=== PATIENT | male | born 1945 | race Caucasian/White ===

== ENCOUNTER → 2016-09-29 | Outpatient (CLI) | payer MEDICARE, BC ==
--- NOTE | 2016-09-29 14:45 | CARDIOVASCULAR REPORT ---
"Cerebrovascular Exam Indications: 368.2 Diplopia. 780.4 Dizziness and giddiness. IMPRESSIONS 1. The bilateral vertebral arteries are patent with normal antegrade flow. 2. Study suggests less than 20% stenosis involving the right internal carotid artery and the left internal carotid artery. No change from the study of 20-Aug-2007. History: Risk factors: Hypertension. Carotid duplex study. Complete study and Doppler flow study including spectral analysis, color and xie scale imaging. Height: Height: 175.3cm. Height: 69in. Weight: Weight: 90.7kg. Weight: 199.6lb. Body mass index: BMI: 29.5kg/m^2. Body surface area: BSA: 2.12m^2. Tables: Arterial flow: + +--------+--------+ |Location |V sys |V ed | + +--------+--------+ |Right CCA - proximal|74.6cm/s|13.4cm/s| + +--------+--------+ |Right CCA - distal |62.9cm/s|14.1cm/s| + +--------+--------+ |Right ECA |115cm/s |--------| + +--------+--------+ |Right ICA - proximal|64.6cm/s|12.3cm/s| + +--------+--------+ |Right ICA - mid |47cm/s |17cm/s | + +--------+--------+ |Right ICA - distal |51.7cm/s|15.3cm/s| + +--------+--------+ |Right vertebral |47.1cm/s|--------| + +--------+--------+ |Left CCA - proximal |94.3cm/s|19.6cm/s| + +--------+--------+ |Left CCA - distal |92.7cm/s|15.7cm/s| + +--------+--------+ |Left ECA |130cm/s |--------| + +--------+--------+ |Left ICA - proximal |77cm/s |20.4cm/s| + +--------+--------+ |Left ICA - mid |62.8cm/s|19.4cm/s| + +--------+--------+ |Left ICA - distal |73.9cm/s|21.2cm/s| + +--------+--------+ |Left vertebral |40.9cm/s|--------| + +--------+--------+ (Report amended ) Electronically signed by: Brandon Mcleod [id number]"
--- NOTE | 2016-09-30 09:49 | RADIOLOGY REPORT PS360 ---
MRI-BRAIN W/O HISTORY: Double vision, diplopia, lightheaded DIPLOPIA COMPARISON: None TECHNIQUE: Standard multiplanar multiecho sequences are performed without contrast. FINDINGS: No midline shift, mass effect, intracranial hemorrhage, hydrocephalus, or extra-axial fluid collection is evident. No evidence of acute infarction. There are a few punctate nonspecific T2 white matter hyperintensities noted with mild atrophy noted Cerebellopontine angles, cerebellum, and brainstem are unremarkable. Pituitary has an unremarkable appearance. No mastoid effusion or sinus air-fluid level is evident. IMPRESSION: 1. No acute intracranial pathology. 2. Involutional changes of age with mild atrophy and nonspecific T2 white matter hyperintensities
--- NOTE | 2016-09-30 09:56 | RADIOLOGY REPORT PS360 ---
EXAM: CT LUNG LOW DOSE WO CONTRAST COMPARISON: None HISTORY: Greater than 30 pack-year smoking history, currently smoking, asymptomatic TECHNIQUE: The exam was performed on a GE Light Speed [address] scanner using 2.94 mGy CTDI. A low dose helical CT CHEST was performed on a multi-detector scanner The LDCT was performed in a facility that meets the criteria for the screening program. Data regarding this exam was submitted to ACR which is an approved registry. The order for this exam indicates that it came as a result of a lung cancer screening counseling shard decision-making visit that included all the elements required of such a visit including smoking cessation. The radiologist interpreting this exam meets the [facility] criteria for the LDCT lung cancer screening program. The exam is reported using the Lung-RADS classification scale and reported to the ACR registry. NOTE: This study was performed for the specific purposes of lung cancer screening and is not an alternative to diagnostic chest CT. RADIATION DOSE: CTDI vol(CT dose Index-volume) = 2.94mG DLP (Dose Length Product) = 122.23 mGcm FINDINGS: There are 2 3-mm nodules in the right middle lobe a semisolid 4 mm nodules present in the left upper lobe. Semisolid 10 mm opacity in the left lung base probably due to an area of fibrosis. LUNG PARENCHYMA Emphysema: No detectable emphysematous change Airways disease: Hyperinflation with mild bronchial thickening Fibrosis: Minimal fibrotic change right apex and probable fibrotic change left lower lobe OTHER ANATOMIC REGIONS Lymph Nodes: No enlarged lymph nodes evident. Scattered small nodes are present in the mediastinum and zaire Pleura: Unremarkable Cardiac: Coronary artery calcifications suggesting coronary artery disease OTHER FINDINGS: No other pertinent findings evident IMPRESSION: 1. Lung RADS Category: 3 probably benign. Recommend 6 month follow-up regarding probable fibrotic changes left lower lobe 2. Other findings: Coronary artery calcifications consistent with coronary artery disease Obstructive chronic bronchitis RECOMMENDATIONS: 6 monthd LDCT follow-up
== END ==
LOC: RAD 12:55
DX: H53.2 Diplopia (principal); I10 Essential (primary) hypertension; Z87.891 Personal history of nicotine dependence
CPT/HCPCS: G0297